=== PATIENT | female | born 1985 | race Caucasian/White ===

== ENCOUNTER → 2018-12-22 | Outpatient (CLI) | payer BC | END | disposition home or self-care (01) | LOC: LAB EV 08:41 → LAB SHORT 08:41 | DX: N39.0 Urinary tract infection, site not specified (principal) | CPT/HCPCS: 87086 ==

== ENCOUNTER → 2019-02-08 | Outpatient (CLI) | payer BC ==
[2019-02-10 15:06] LABS: HPV 16 Negative (Negative); HPV 18 Negative (Negative); HPV OTHER HR TYPES Negative (Negative)
== END | disposition home or self-care (01) ==
LOC: LAB 19:14 → LAB SHORT 19:14
PROVIDERS: Family Medicine
DX: Z01.419 Encounter for gynecological examination (general) (routine) without abnormal findings (principal)
CPT/HCPCS: 87624; G0145

== ENCOUNTER 2023-11-12 07:48 | Inpatient (IN) | payer BC ==
[~2023-11-12] VITALS: Ht 162.6 cm; Wt 84.5 kg
[2023-11-12] VITALS (14 sets, daily range): BP systolic 118–147; BP diastolic 67–92
[~2023-11-12 07:48] MED LIST: C COMPLEX1000 M1 PO; DHEA PO; FLUO10 PO; IRON18 MG PO; KYZATREX100 MG PO; MIRT15ST PO; PROP10 PO; VITAMIN D310 MC4 PO
[2023-11-12] MEDS ORDERED: Lactated Ringer's 1,000 ML IV SCH ×2 (08:45→12:45)
[2023-11-12] MEDS ORDERED: CeFAZolin Sodium 2,000 MG in NS 50 ML IV SCH (08:45)
--- NOTE | 2023-11-12 09:57 | NUR ---
Ambulatory in Day Surgery History, Chart, Medications and Allergies reviewed before start of procedure.Lungs clear T/O to Auscultation. Pre-Op teaching done. Pt verbalizes understanding. Patient States Post-Procedure ride home has been arranged.
[2023-11-12] MEDS ORDERED: Bupivacaine 0.5% HCl 5 MG/ML 30MLVIAL ONE (10:48)
[2023-11-12] MEDS ORDERED: Scopolamine Hydrobromide Patch ONE (10:52)
[2023-11-12] MEDS ORDERED: Midazolam HCl 1MG / ML 2ML Vial ONE (10:53)
[2023-11-12] MEDS ORDERED: FentaNYL Citrate 50 MCG/ML 5 ML Injection ONE (10:55)
[2023-11-12] MEDS ORDERED: Midazolam HCl 1MG / ML 2ML Vial IV SCH (10:55)
[2023-11-12] MEDS ORDERED: propofoL 20 ML IV ONE (10:55)
[2023-11-12] MEDS ORDERED: Ketorolac Tromethamine 30mg Vial ONE (11:03)
[2023-11-12] MEDS ORDERED: Ondansetron HCl 2 MG / ML 2ML Vial ONE (11:03)
[2023-11-12] MEDS ORDERED: Rocuronium Bromide 10 MG/ML 5ML Injection IV ONE ×2 (11:03→12:20)
[2023-11-12] MEDS ORDERED: Dexamethasone Sod Phos 10 MG/ML 1ML VIAL ONE (11:03)
[2023-11-12] MEDS ORDERED: HYDROmorphone HCl/Pf 1MG SYR IV PRN (11:40)
[2023-11-12] MEDS ORDERED: Droperidol 5 mg/2 ml Vial IV PRN (11:40)
[2023-11-12] MEDS ORDERED: Albuterol 2.5 MG/3 ML VIAL INH PRN (11:45)
[2023-11-12] MEDS ORDERED: FentaNYL Citrate 50 MCG/ML 2 ML Injection IV PRN (11:45)
[2023-11-12] MEDS ORDERED: HYDROmorphone HCl/Pf 1MG SYR ONE ×2 (12:06→12:59)
[2023-11-12] MEDS ORDERED: Sugammadex Sodium 200 MG/2ML SDV (100 MG/ML) ONE (12:20)
[2023-11-12] MEDS ORDERED: Ondansetron HCl 2 MG / ML 2ML Vial IV PRN (12:40)
[2023-11-12] MEDS ORDERED: OxyCODONE HCL 5 MG TAB PO PRN (12:40)
[2023-11-12] MEDS ORDERED: Ibuprofen 400 MG Tab PO PRN (12:40)
[2023-11-12] MEDS ORDERED: Simethicone 80 MG Chew PO PRN (12:40)
[2023-11-12] MEDS ORDERED: HYDROcodone 10-APAP 325 TAB PO PRN (12:40)
[2023-11-12] MEDS ORDERED: DiphenhydrAMINE HCL 25 MG Cap PO PRN (12:45)
[2023-11-12] MEDS ORDERED: Acetaminophen 325 MG TABLET PO PRN (12:45)
[2023-11-12] MEDS ORDERED: fentaNYL citrate 25 MCG/ML 30ML Bag IV PRN (12:50)
--- NOTE | 2023-11-12 16:46 | NUR ---
SUMMARY PATIENT IS POD0 TOTAL ABD HYSTER. TRANSVERSE INCISION WITH MEDIPORE DRESSING. C/D/I. BOLTON IN PLACE DRAINING CLEAR, YELLOW, URINE.PATIENT MEDICATED FOR PAIN AND TOELRATED WELL. DENIES N/V. TOLERATING PO INTAKE. VSS, CALL LIGHT IN REACH.
[2023-11-12] MEDS ORDERED: Ketorolac Tromethamine 30mg Vial IV SCH (18:00)
[2023-11-13 04:06] VITALS: BP 115/68
[2023-11-13 04:08] LABS: BASOPHILS ABSOLUTE AUTO 0.03 K/mm3 (0.00-0.23); BASOPHILS PERCENT AUTO 0 % (0-2); EOSINOPHILS ABSOLUTE AUTO 0.03 K/mm3 (0.00-0.68); EOSINOPHILS PERCENT AUTO 0 % (0-6); Hematocrit 33.7 % (33.0-51.0); Hemoglobin 11.5 g/dL (11.5-16.0); IMMATURE GRAN ABSOLUTE AUTO 0.08 K/mm3 (0.00-0.10); IMMATURE GRAN PERCENT AUTO 1 % (0-1); LYMPHOCYTES ABSOLUTE AUTO 1.62 K/mm3 (0.84-5.20); LYMPHOCYTES PERCENT AUTO 10 % (21-46); MONOCYTES ABSOLUTE AUTO 1.36 K/mm3 (0.16-1.47); MONOCYTES PERCENT AUTO 9 % (4-13); Mean Corpuscular HGB 32.3 pg (26.0-34.0); Mean Corpuscular HGB Conc 34.1 g/dL (31.5-36.5); Mean Corpuscular Volume 95 fL (80-100); Mean Platelet Volume 10.2 fL (9.1-12.4); NEUTROPHILS ABSOLUTE AUTO 12.76 K/mm3 (1.96-9.15); NEUTROPHILS PERCENT AUTO 80 % (41-73); Platelet Count 266 K/mm3 (150-400); RDW Coefficient Variation 11.9 % (11.7-14.2); RDW Standard Deviation 41.3 fL (35.1-46.3); Red Blood Cell Count 3.56 M/mm3 (3.80-5.20); White Blood Cell Count 15.88 K/mm3 (4.00-11.30)
--- NOTE | 2023-11-13 06:38 | NUR ---
SHIFT SUMMARY POD 1 ABD HYSTR. NO ACUTE CHANGES OVERNIGHT. VS WNL FOR PT. TOLERATING ORALS. TRANSVERSE MEDIPORE C/D/I. BOLTON IN PLACE, DRAINING TO GRAVITY. 1 LIANE PAD USED T/O NIGHT, MINIMAL BROWN/SANGUINEOUS DRAINAGE. AMBULATES c SBA. MEDICATED FOR PAIN PER EMAR, PT REPORTS PAIN TOLERABLE. S/O AT BEDSIDE OVERNIGHT. CALL LIGHT IN REACH, BED IN LOWEST POSITION, WILL REPORT TO DAY RN.
[2023-11-13 07:15] VITALS: BP 110/61
[2023-11-13] MEDS ORDERED: Norco 5-325 Ta1 EACH PO (15:27)
[2023-11-13] MEDS ORDERED: MOTRIN IB200 MG PO (15:28)
--- NOTE | 2023-11-13 15:37 | NUR ---
DISCHARGE NOTE: PATIENT WAS EDUCATED ON DISCHARGE INSTRUCTIONS. SHE VERBALIZED UNDERSTANDING OF INSTRUCTIONS AND HAD NO FURTHER QUESTIONS AT THIS TIME. IV WAS TAKEN OUT AND WNL. PAIN IS MANAGED WITH PO PAIN MEDS. HARD PERSCRIPTION WAS GIVEN TO PATIENT INSIDE HER DISCHARGE FOLDER. PATIENTS TRANSVERSE ABD INCISION HAS A MEDIPORE DRESSING THAT IS C/D/I. SHE IS TOLERATING PO INTAKE AND IS VOIDING/PASSING GAS. PATIENT IS DRESSED AND HAS PERSONAL ITEMS IN THE ROOM GATHERED. PATIENT IS AWAITING FOR HER RIDE TO COME PICK HER UP TO TAKE HER HOME.
--- NOTE | 2023-11-13 15:44 | NUR ---
PATIENT IS BEING WHEELCHAIRED OUT TO HER FAMILIES CAR TO BE TAKEN HOME.
== END 2023-11-13 15:45 | disposition home or self-care (01) | DRG 743 ==
LOC: SURS 07:48 → PRE IP 09:30 → SURS 13:11
PROVIDERS: ADMIT Obstetrics & Gynecology
PROC: 0UT70ZZ Resection of Bilateral Fallopian Tubes, Open Approach (ICD-10-PCS; 2023-11-12)
PROC: 0UT90ZL Resection of Uterus, Supracervical, Open Approach (ICD-10-PCS; principal; 2023-11-12 09:30)
DX: D25.9 Leiomyoma of uterus, unspecified (principal); N94.6 Dysmenorrhea, unspecified; N92.0 Excessive and frequent menstruation with regular cycle; N85.2 Hypertrophy of uterus; D50.0 Iron deficiency anemia secondary to blood loss (chronic); F41.9 Anxiety disorder, unspecified; F32.A Depression, unspecified; G47.00 Insomnia, unspecified; K21.9 Gastro-esophageal reflux disease without esophagitis
CPT/HCPCS: 36415; 85025; 88307; A9270; J0690; J1100; J1170; J1885; J2250; J2405; J2704; J3010; J7120